=== PATIENT | male | born 1990 | race Caucasian/White ===

== ENCOUNTER 2021-01-23 10:53 | Inpatient (IN) | payer BC ==
[~2021-01-23] VITALS: Ht 180.3 cm; Wt 81.8 kg
[2021-01-23] VITALS: BP 116/61
--- NOTE | 2021-01-23 11:40 | NUR ---
Patient taken by bed to OR for surgery.
[2021-01-23 12:29] LABS: BASOPHILS % (AUTO) 0.2 % (0-1); EOSINOPHILS % (AUTO) 0.1 % (0-6); HEMATOCRIT 44.3 % (42.0-52.0); HEMOGLOBIN 15.2 g/dl (14.0-17.9); LYMPHOCYTES # (AUTO) 1.4 X10'3 (1.1-4.8); LYMPHOCYTES % (AUTO) 8.6 % (21-51); MEAN CORPUSCULAR HGB CONC 34.3 g/dL (33.0-36.5); MEAN CORPUSCULAR VOLUME 87.5 FL (78-98); MEAN PLATELET VOLUME 7.7 FL (7.4-10.4); MONOCYTES # (AUTO) 1.2 X10'3 (0-0.9); MONOCYTES % (AUTO) 7.4 % (2-12); NEUTROPHILS # (AUTO) 13.6 X10'3 (1.8-7.7); NEUTROPHILS % (AUTO) 83.7 % (42-75); PLATELET COUNT 291 X10'3 (140-440); RED BLOOD COUNT 5.07 X10'6 (4.70-6.10); RED CELL DISTRIBUTION WIDTH 13.6 % (11.5-14.5); WHITE BLOOD COUNT 16.2 X10'3 (4.5-11.0)
[2021-01-23 12:49] LABS: ALANINE AMINOTRANSFERASE 22 U/L (12-78); ALBUMIN 4.4 G/DL (3.4-5.0); ALBUMIN/GLOBULIN RATIO 1.2 (1.1-1.5); ALKALINE PHOSPHATASE 90 IU/L (46-116); ANION GAP 12 (8-16); ASPARTATE AMINO TRANSFERASE 18 U/L (10-37); BILIRUBIN,TOTAL 0.5 MG/DL (0.1-1.0); BLOOD UREA NITROGEN 10 MG/DL (7-18); BUN/CREATININE RATIO 14.9 (5.4-32.0); CHLORIDE 100 MMOL/L (99-107); CREATININE 0.67 MG/DL (0.60-1.10); GLUCOSE 113 MG/DL (70-104); LIPASE 67 U/L (73-393); POTASSIUM 3.6 MMOL/L (3.5-5.1); SODIUM 136 MMOL/L (135-145); TOTAL CARBON DIOXIDE 24.2 MMOL/L (24-32); TOTAL PROTEIN 8.1 G/DL (6.4-8.2); eGFR > 90 ML/MIN
[2021-01-23] MEDS ORDERED: iohexol 300mg/ml 100ml inj. ONE ×2 (12:51→12:53)
[2021-01-23 13:00] LABS: CLARITY,URINE CLEAR (Clear); COLOR,URINE YELLOW (Yellow); GLUCOSE, URINE NEGATIVE (Neg); KETONES,URINE >=80 mg/dl (Neg); LEUKOCYTE ESTERASE ,URINE NEGATIVE (Neg); NITRITES, URINE NEGATIVE (Neg); OCCULT BLOOD,URINE NEGATIVE (Neg); PH,URINE 6.5 (4.8-8.0); PROTEIN,URINE TRACE mg/dl (Neg); UROBILINOGEN,URINE 0.2 E.U/dL (0.2-1.0)
[2021-01-23 13:05] LABS: UA COLLECTION TYPE CLN CATCH MIDSTREAM
[2021-01-23 13:06] LABS: WBC,URINE 0-4 /HPF (0-4)
[2021-01-23 13:07] LABS: BACTERIA,URINE NONE SEEN /HPF (Neg); FINE GRANULAR CAST 0-3 /LPF (NEGATIVE); MUCUS STRANDS MANY /LPF (Neg); RBC,URINE NONE SEEN /HPF (0-2); SQUAMOUS EPITHELIAL CELL,UR FEW /LPF (FEW)
--- NOTE | 2021-01-23 13:20 | NUR ---
pt back from CT.
--- NOTE | 2021-01-23 14:10 | NUR ---
awaiting for ED provider.Call light within reach.
[2021-01-23] MEDS ORDERED: ringers solution, lacted 1,000 ML IV ONE ×2 (14:35→20:20)
[2021-01-23] MEDS: piperacillin/tazo 3.375gm/50ml 50 ML IV SCH (14:53)
[2021-01-23] MEDS ORDERED: NO HOME MEDS (15:20)
[2021-01-23] MEDS ORDERED: acetaminophen 325mg tablet PO PRN ×2 (15:55)
[2021-01-23] MEDS ORDERED: potassium Cl 20 mEq SR tablet PO PRN ×2 (15:55)
[2021-01-23] MEDS ORDERED: magnesium 2GM in 50ml NS 50 ML IV PRN (15:55)
[2021-01-23] MEDS ORDERED: HYDROcodone/acetaminophen 5mg/325mg tablet PO PRN (15:55)
[2021-01-23] MEDS ORDERED: bisacodyl 10mg suppository rectal RC PRN (15:55)
[2021-01-23] MEDS ORDERED: magnesium Cl slow-release 64mg tablet PO PRN (15:55)
[2021-01-23] MEDS ORDERED: morphine 2 MG/ML inj. syringe IV PRN ×3 (15:55→20:20)
[2021-01-23] MEDS ORDERED: mag hydrox/Alum hydrox/simeth 30ml oral suspension PO PRN (15:55)
[2021-01-23] MEDS ORDERED: ondansetron/PF 4mg/2ml inj IV PRN ×2 (15:55→20:20)
[2021-01-23] MEDS ORDERED: magnesium hydroxide 30ml (MOM) UD suspension PO PRN (15:55)
[2021-01-23] MEDS ORDERED: diphenhydrAMINE 25mg capsule PO PRN (15:55)
[2021-01-23] MEDS ORDERED: potassium Cl 40MEQ/1/2NS 520ml 520 ML IV PRN ×2 (15:55)
[2021-01-23] MEDS ORDERED: HYDROcodone/acetaminophen 10/325mg tab PO PRN (15:55)
[2021-01-23] MEDS ORDERED: acetaminophen 650mg rectal suppository RC PRN (15:55)
[2021-01-23] MEDS ORDERED: magnesium 4gm in 100ml NS 100 ML IV PRN (15:55)
[2021-01-23] MEDS ORDERED: piperacillin/tazo 3.375gm/50ml 50 ML IV SCH (16:00)
[2021-01-23] MEDS: normal saline 1000ml 1,000 ML IV SCH ×2 (16:40→23:55)
[2021-01-23 16:57] LABS: HEMOGLOBIN A1C 5.4 % (4.5-6.2)
[2021-01-23 17:02] LABS: URINE AMPHETAMINE SCREEN NEGATIVE (Neg); URINE BARBITUATE SCREEN NEGATIVE (Neg); URINE BENZODIAZEPINES SCREEN NEGATIVE (Neg); URINE CANNABINOID SCREEN NEGATIVE (Neg); URINE COCAINE SCREEN NEGATIVE (Neg); URINE METHADONE SCREEN NEGATIVE (Neg); URINE OPIATE SCREEN NEGATIVE (Neg); URINE PHENCYCLIDINE SCREEN NEGATIVE (Neg)
--- NOTE | 2021-01-23 17:03 | NUR ---
RN called for report [phone] A, unavailable at this time
--- NOTE | 2021-01-23 17:20 | NUR ---
Report received from ED RN, Calvin
[2021-01-23 17:40] VITALS: BP 129/65
[2021-01-23 18:00] VITALS: BP 118/62
--- NOTE | 2021-01-23 19:00 | NUR ---
Problems reprioritized. Patient report given, questions answered & plan of care reviewed with SYLVIA Caceres.
[2021-01-23 19:18] VITALS: BP 122/66
[2021-01-23] MEDS: heparin, porcine 5000 units/ml vial SQ SCH (20:00)
[2021-01-23] MEDS: K and/or MAG REPLACEMENT MC SCH (20:00)
[2021-01-23 20:13] LABS: PRE OP INR 1.1 INR; PRE OP PROTIME 11.6 SECONDS (9.0-12.0)
[2021-01-23] MEDS ORDERED: hydrALAZINE 20mg/ml inj. IV PRN (20:20)
[2021-01-23] MEDS ORDERED: labetalol 20mg/4ml (5mg/ml) syringe IV PRN (20:20)
[2021-01-23] MEDS ORDERED: ringers solution, lacted 1,000 ML IV SCH (20:20)
[2021-01-23] MEDS ORDERED: fentaNYL/PF 50MCG/1 ML 2ML syringe IV PRN ×2 (20:20)
[2021-01-23] MEDS ORDERED: morphine 4 MG/ML inj SYRINge IV PRN (20:20)
[2021-01-23] MEDS ORDERED: BUPIVAcaine 0.5% inj/PF 30 ML ONE (22:17)
[2021-01-23] MEDS ORDERED: sevoflurane 250ml liquid IH ONE (23:53)
[2021-01-23] MEDS ORDERED: neostigmine methylsulfate 1 MG/ML 10ml vial ONE (23:53)
[2021-01-23] MEDS ORDERED: fentaNYL/PF 50MCG/1 ML 2ML syringe ONE (23:55)
[2021-01-23] MEDS ORDERED: rocuronium 10mg/ml inj IV ONE (23:56)
[2021-01-23] MEDS ORDERED: ondansetron/PF 4mg/2ml inj ONE (23:56)
[2021-01-23] MEDS ORDERED: LIDOcaine 2% (20mg/ml) 5ml vial ONE (23:56)
[2021-01-23] MEDS ORDERED: propofol inj 20 ML IV ONE (23:56)
[2021-01-23] MEDS ORDERED: midazolam 1 mg/ML 2ml injection ONE (23:56)
[2021-01-24] VITALS (9 sets, daily range): BP systolic 109–122; BP diastolic 60–87
[2021-01-24] MEDS ORDERED: dexamethasone sod phosphate 4mg/ml inj. ONE (00:09)
[2021-01-24] MEDS ORDERED: ceFOXitin 1000 MG inj ONE ×2 (00:17)
[2021-01-24] MEDS ORDERED: glycopyrrolate 0.2mg/ml inj ONE (00:39)
[2021-01-24] MEDS ORDERED: HYDROcodone/acetaminophen 10/325mg tab PO PRN (00:55)
[2021-01-24] MEDS ORDERED: ondansetron/PF 4mg/2ml inj IV PRN (00:55)
--- NOTE | 2021-01-24 01:10 | NUR ---
RECEIVED REPORT FROM GORDON WARD. PT. VSS. ABLE TO MOVE ALL EXTREMITIES WITH INTACT SENSATION. PALPABLE PULSES. IV 20 G IN R. AC. JOSE DE JESUS DRAIN IN R. UPPER ABDOMEN. SCANT DRAINAGE NOTED. BANDAID X 2 WITH GAUZE AND MEDIPORE TAPE. DENIES PAIN. AROUSABLE. ABLE TO ANSWER QUESTIONS. Addendum: 01/24/21 at 0133 by Patria Baer RN Amended: Links added.
--- NOTE | 2021-01-24 01:42 | NUR ---
[id number] PT ON 3 L. O2 VIA MASK. Addendum: 01/24/21 at 0143 by Patria Baer RN Amended: Links added.
--- NOTE | 2021-01-24 01:55 | NUR ---
REPORT CALLED TO MARTINEZ ON SURGICAL. PT. MET ALL DC CRITERIA. VSS. ON RA. 08/27 PAIN. EDUCATED ON COUGHING AND DEEP BREATHING AND HOW TO SPLINT WITH PILLOW. JOSE DE JESUS DRAIN SCANT DRAINAGE NOTED. DRESSINGS CDI. PT. ALERT AND TALKING. LR INFUSING IN R. AC 20 G. AT A00 Addendum: 01/24/21 at 206 by Patria Baer RN AT 100 ML/HR. CDI. PT. TOLERATED TRANSFER WELL. Addendum: 01/24/21 at 207 by Patria Baer RN Amended: Links added.
--- NOTE | 2021-01-24 02:27 | NUR ---
Patient is in 2/10 pain; comfortable. VSS. Dressings on lap sites and JOSE DE JESUS are CDI. Will continue to monitor.
--- NOTE | 2021-01-24 06:48 | NUR ---
Problems reprioritized. Patient report given, questions answered & plan of care reviewed with SYLVIA Lieberman.
[2021-01-24 06:51] LABS: BASOPHILS % (AUTO) 0.1 % (0-1); EOSINOPHILS % (AUTO) 0 % (0-6); HEMOGLOBIN 13.8 g/dl (14.0-17.9); LYMPHOCYTES # (AUTO) 0.9 X10'3 (1.1-4.8); LYMPHOCYTES % (AUTO) 5.9 % (21-51); MEAN CORPUSCULAR HEMOGLOBIN 30.1 PG (27.0-31.0); MEAN CORPUSCULAR HGB CONC 34.5 g/dL (33.0-36.5); MEAN CORPUSCULAR VOLUME 87.3 FL (78-98); MONOCYTES # (AUTO) 0.5 X10'3 (0-0.9); MONOCYTES % (AUTO) 3.4 % (2-12); NEUTROPHILS # (AUTO) 14.4 X10'3 (1.8-7.7); NEUTROPHILS % (AUTO) 90.6 % (42-75); PLATELET COUNT 225 X10'3 (140-440); RED BLOOD COUNT 4.59 X10'6 (4.70-6.10); RED CELL DISTRIBUTION WIDTH 13.6 % (11.5-14.5); WHITE BLOOD COUNT 15.9 X10'3 (4.5-11.0)
--- NOTE | 2021-01-24 07:13 | NUR ---
Patient in room [facility]. I have received report from Nicki WARD and had the opportunity to ask questions and assume patient care.
[2021-01-24 07:19] LABS: ALANINE AMINOTRANSFERASE 19 U/L (12-78); ALBUMIN 3.5 G/DL (3.4-5.0); ALKALINE PHOSPHATASE 76 IU/L (46-116); ANION GAP 13 (8-16); ASPARTATE AMINO TRANSFERASE 12 U/L (10-37); BILIRUBIN,TOTAL 0.6 MG/DL (0.1-1.0); BLOOD UREA NITROGEN 7 MG/DL (7-18); BUN/CREATININE RATIO 9.3 (5.4-32.0); CALCIUM 8.3 MG/DL (8.5-10.1); CHLORIDE 103 MMOL/L (99-107); CHOL/HDL RATIO 4.6 (0.00-4.99); CHOLESTEROL 179 MG/DL (0-200); CREATININE 0.75 MG/DL (0.60-1.10); GLUCOSE 123 MG/DL (70-104); HDL CHOLESTEROL 39 MG/DL (35-60); LDL CHOLESTEROL 120 MG/DL (50-100); MAGNESIUM 1.8 MG/DL (1.5-2.4); PHOSPHORUS 3.5 MG/DL (2.3-4.5); POTASSIUM 3.9 MMOL/L (3.5-5.1); SODIUM 139 MMOL/L (135-145); TOTAL CARBON DIOXIDE 22.6 MMOL/L (24-32); TRIGLYCERIDES 48 MG/DL (20-135); eGFR > 90 ML/MIN
[2021-01-24] MEDS: normal saline 1000ml 1,000 ML IV SCH ×2 (07:55→15:55)
[2021-01-24] MEDS: K and/or MAG REPLACEMENT MC SCH ×2 (08:00→20:00)
[2021-01-24] MEDS: piperacillin/tazo 3.375gm/50ml 50 ML IV SCH ×3 (09:07→16:03)
[2021-01-24] MEDS: heparin, porcine 5000 units/ml vial SQ SCH ×2 (09:07→22:11)
--- NOTE | 2021-01-24 18:39 | NUR ---
Problems reprioritized. Patient report given, questions answered & plan of care reviewed with Nicki WARD.
--- NOTE | 2021-01-24 18:51 | NUR ---
Patient in room [facility]. I have received report from SYLVIA Lieberman and had the opportunity to ask questions and assume patient care.
[2021-01-25] VITALS: BP 110/63
[2021-01-25] MEDS: piperacillin/tazo 3.375gm/50ml 50 ML IV SCH ×2 (00:19→09:34)
--- NOTE | 2021-01-25 06:29 | NUR ---
Patient in room [facility]. I have received report from Nicki WARD and had the opportunity to ask questions and assume patient care.
--- NOTE | 2021-01-25 06:49 | NUR ---
Problems reprioritized. Patient report given, questions answered & plan of care reviewed with SYLVIA Lieberman.
[2021-01-25 07:22] LABS: ALANINE AMINOTRANSFERASE 15 U/L (12-78); ALBUMIN 3.4 G/DL (3.4-5.0); ALBUMIN/GLOBULIN RATIO 0.9 (1.1-1.5); ALKALINE PHOSPHATASE 66 IU/L (46-116); ANION GAP 8 (8-16); ASPARTATE AMINO TRANSFERASE 11 U/L (10-37); BILIRUBIN,TOTAL 0.6 MG/DL (0.1-1.0); BLOOD UREA NITROGEN 11 MG/DL (7-18); BUN/CREATININE RATIO 12.1 (5.4-32.0); CALCIUM 8.3 MG/DL (8.5-10.1); CHLORIDE 104 MMOL/L (99-107); CREATININE 0.91 MG/DL (0.60-1.10); GLUCOSE 91 MG/DL (70-104); MAGNESIUM 2.1 MG/DL (1.5-2.4); PHOSPHORUS 2.7 MG/DL (2.3-4.5); POTASSIUM 3.8 MMOL/L (3.5-5.1); SODIUM 139 MMOL/L (135-145); TOTAL CARBON DIOXIDE 27.1 MMOL/L (24-32); TOTAL PROTEIN 7.1 G/DL (6.4-8.2); eGFR > 90 ML/MIN
[2021-01-25 07:38] LABS: BASOPHILS % (AUTO) 0.1 % (0-1); EOSINOPHILS # (AUTO) 0.1 X10'3 (0-0.9); EOSINOPHILS % (AUTO) 1.3 % (0-6); HEMATOCRIT 39.8 % (42.0-52.0); HEMOGLOBIN 13.6 g/dl (14.0-17.9); LYMPHOCYTES # (AUTO) 3.2 X10'3 (1.1-4.8); LYMPHOCYTES % (AUTO) 33.4 % (21-51); MEAN CORPUSCULAR HEMOGLOBIN 30.2 PG (27.0-31.0); MEAN CORPUSCULAR HGB CONC 34.1 g/dL (33.0-36.5); MEAN CORPUSCULAR VOLUME 88.3 FL (78-98); MEAN PLATELET VOLUME 7.9 FL (7.4-10.4); NEUTROPHILS # (AUTO) 5.1 X10'3 (1.8-7.7); NEUTROPHILS % (AUTO) 54.2 % (42-75); PLATELET COUNT 226 X10'3 (140-440); RED CELL DISTRIBUTION WIDTH 13.9 % (11.5-14.5); WHITE BLOOD COUNT 9.5 X10'3 (4.5-11.0)
[2021-01-25] MEDS: heparin, porcine 5000 units/ml vial SQ SCH (08:00)
[2021-01-25] MEDS: K and/or MAG REPLACEMENT MC SCH (08:00)
[2021-01-25 08:40] VITALS: BP 111/51
--- NOTE | 2021-01-25 12:00 | NUR ---
PATIENT DISCHARGED HOME AT THIS TIME, NON NEW MEDICATIONS WERE ADDED. PATIENT IV TAKEN OUT AT THIS TIME, IV WHOLE UPON INSPECTION. PATIENT LEFT WITH ALL BELONGINGS AT THE TIME DISCHARGE. PATIENT WAS WALKED TO THE [facility] BY [facility] AND WAS TAKEN HOME IN PRIVATE VEHICLE.
== END 2021-01-25 11:02 | disposition home or self-care (01) | DRG 343 ==
LOC: ER 10:54 → ED HOLD 15:54 → EDBEDREQ 16:40 → SUR 3N 17:32
PROVIDERS: ADMIT Family Medicine; ATTEND Family Medicine
PROC: BW211ZZ Computerized Tomography (CT Scan) of Abdomen and Pelvis using Low Osmolar Contrast (ICD-10-PCS; 2021-01-23)
PROC: 0DTJ4ZZ Resection of Appendix, Percutaneous Endoscopic Approach (ICD-10-PCS; principal; 2021-01-24)
DX: K35.80 Unspecified acute appendicitis (principal); F17.210 Nicotine dependence, cigarettes, uncomplicated; Z20.822 Contact with and (suspected) exposure to COVID-19
CPT/HCPCS: 36415; 71045; 74177; 80053; 80061; 80305; 81001; 82948; 83036; 83690; 83735; 84100; 85025; 85610; 85730; 86885; 86900; 86901; 87635; 93005; 96365; 99285; A4215; A4618; A6402; A7000; G0378; J0694; J1100; J1644; J2001; J2250; J2405; J2543; J2704; J2710; J3010; J3490; J7030; J7120; Q9967